=== PATIENT | male | born 1990 | race Caucasian/White ===

== ENCOUNTER 2018-10-29 18:09 | Emergency (ER) | payer MEDICAID, OTHER ==
[~2018-10-29] VITALS: Ht 160 cm; Wt 64.0 kg
[2018-10-29 18:22] VITALS: Ht 160 cm; Wt 64.0 kg
[2018-10-29] MEDS ORDERED: HC30CR25 TOP (19:27)
[2018-10-29] MEDS ORDERED: BEN25 PO (19:27)
[2018-10-29] MEDS ORDERED: PRED20TA PO (19:27)
--- NOTE | 2018-10-29 19:29 | ERD ---
ER Documentation Chief Complaint Chief Complaint RASH UPPER R-CHEST X 20 DAYS HPI 28-year-old male presents with a rash on the chest and legs for the last 3 weeks. It is itchy. Denies any lesions on his hands or his feet. Denies any fevers, vomiting, sore throat, shortness of breath, additional symptoms. Denies any previous allergies. ROS All systems reviewed and are negative except as per history of present illness. Medications Home Meds Active Scripts Hydrocortisone* Topical (Hydrocortisone* Topical) 2.5%-28.3 Gm Cream..g., 1 APPLIC TOP BID for 10 Days, #1 TUB Prov:EDVIN ALCOCER MD 10/29/18 Diphenhydramine Hcl* (Benadryl*) 25 Mg Cap, 25 MG PO Q6, #20 CAP Prov:EDVIN ALCOCER MD 10/29/18 Prednisone* (Prednisone*) 20 Mg Tab, 40 MG PO DAILY for 4 Days, TAB Prov:EDVIN ALCOCER MD 10/29/18 Allergies Allergies: Coded Allergies: No Known Allergy (Unverified , 10/29/18) FmHx Family History: No diabetes, No coronary disease, No other Physical Exam Vitals Vital Signs Date Temp Pulse Resp B/P (MAP) Pulse Ox O2 O2 Flow FiO2 Time Delivery Rate 10/29/18 98.1 76 18 134/85 98 18:22 (101) Physical Exam Const: No acute distress Head: Atraumatic Eyes: Normal Conjunctiva ENT: Normal External Ears, Nose and Mouth. Oropharynx normal. Neck: Full range of motion. No meningismus. Resp: Clear to auscultation bilaterally Cardio: Regular rate and rhythm, no murmurs Abd: Soft, non tender, non distended. Normal bowel sounds Skin: No petechiae or purpura. Diffuse scaly blanching erythematous plaques on the trunk and extremities. No lesions on the palms of the soles. Appears to be larger lesions on the left upper chest consistent with a herald patch. Back: No midline or flank tenderness Ext: No cyanosis, or edema Neur: Awake and alert Psych: Normal Mood and Affect Procedures/MDM She presents with a rash for the last 3 weeks. Clinically has features consistent with pityriasis rosea. There are no hands or feet lesions to suggest syphilis. Patient has no evidence of purpura or life-threatening rashes. Will treat with Benadryl, short course of prednisone, hydrocortisone, primary care follow-up and return precautions. Departure Diagnosis: Primary Impression: Rash Condition: Stable Patient Instructions: Dermatitis, Non-Specific, Pityriasis Rosea [facility] Usted se garcia hecho un examen mdico de control que le indica que no est en aminata condicin que requiera tratamiento urgente en el Departamento de Emergencia. Un estudio ms profundo y el tratamiento de lyn condicin pueden esperar sin ningn riesgo hasta que usted sea atendida/o en el consultorio de lyn mdico o aminata clnica. Es responsabilidad suya arreglar aminata christiana para el seguimiento del patricia. MANEJO DE CONDICIONES NO URGENTES EN EL FUTURO 1) Si usted tiene un mdico de atencin primaria: Usted debera llamar a lyn mdico de atencin primaria antes de venir al departamento de emergencia. Despus de las horas de consultorio, lyn doctor o lyn asociado/a est disponible por telfono. El mdico o enfermero de arsenio en el servicio telefnico puede asesorarle por dolly medio para atender el problema, o patricia contrario se puede programar aminata christiana. 2) Si usted no tiene un mdico de atencin primaria: Llame al mdico o clnica de referencia que aparece abajo shelley las horas de consultorio para hacer aminata christiana para que le vean. CLINICAS: [facility] [phone] [facility] [phone] [facility] [phone] [place] [phone] [place] [phone] [facility]. [phone] [address] Additional Instructions: Cheque otro vez con lyn doctor primario en el proximo barr or regresa para mas o nueva simptomas. Probablamente un virus que dura 2-4 barr. cheque otro vez en el proximo jaskaran para mas simptomas- vomito, dolor, jasson, problemas con respirando, o con lyn doctor primario. EDVIN ALCOCER MD Oct 29, 2018 19:29
[2018-10-29 20:42] VITALS: BP 128/94; PULSE 74; RESP 18
[2018-12-01] MEDS ORDERED: BEN50 PO (21:19)
[2018-12-01] MEDS ORDERED: HC30CR25 TOP (21:19)
[2018-12-01] MEDS ORDERED: PRED20TA PO (21:19)
== END 2018-10-29 20:47 | disposition home or self-care (01) ==
LOC: FTE 18:09
DX: R21 Rash and other nonspecific skin eruption (principal)
CPT/HCPCS: 99283